=== PATIENT | female | born 1970 | race Caucasian/White ===

== ENCOUNTER 2016-12-17 08:19 | Emergency (ER) | payer BC, OTHER ==
[~2016-12-17] VITALS: Ht 154.9 cm; Wt 59.4 kg
[2016-12-17 08:22] VITALS: TEMP 36.6; Ht 154.9 cm; Wt 59.4 kg
[2016-12-17] MEDS ORDERED: ONDANSETRON INJ 2 MG/ML 2 ML VIAL IV STA (08:41)
[2016-12-17 08:46] VITALS: O2SAT 97
--- NOTE | 2016-12-17 08:49 | EMERGENCY ROOM VISIT NOTE ---
History Report prepared by Jayleenibe: Jack Ayala Under the Supervision of: Dr. Dhiraj Lira D.O. First contact with patient: 08:30 Chief Complaint: CHEST PAIN Stated Complaint: CHEST PAIN, FAINTING, NAUSEA Nursing Triage Summary: PT VERBALIZES SHE WAS SHOVELING SNOW THIS MORNING AROUND 0700 AND CAME INSIDE BECAUSE SHE DEVELOPED NAUSEA AND A HEAT FLASH. PT VERBALIZES SHE FELT LIKE SHE WAS GOING TO PASS OUT. PT VERBALIZES CHEST TIGHTNESS AND SHORTNESS OF BREATH. CP 2/10. DENIES CARDIAC HX. History of Present Illness The patient is a 46 year old female who presents to the Emergency Room with complaints of persistent chest tightness that started earlier this morning. The pain is rated 2/10 in severity. The patient was shoveling snow in her driveway this morning when she started to feel hot, nauseous, and lightheaded. The patient did not lose consciousness but felt like she was going to. The patient had similar symptoms 1-2 years ago, and at that time she did lose consciousness. The patient is having minimal chest tightness, and denies shortness of breath. The patient does not have a cardiac history. She does have a family history of heart disease paternally. The patient is not a smoker. Her last menstrual period was 2 weeks ago, which was heavy. As per the patient's , she appears to be at baseline. Source of History: patient, spouse/significant other Onset: this morning Position: chest Symptom Intensity: 2/10 Quality: other (tightness) Timing: other (persistent) Associated Symptoms: + nausea, No SOB Review of Systems See HPI for pertinent positives and negatives. A total of ten systems were reviewed and were otherwise negative. Past Medical & Surgical Medical Problems: (1) Syncope Family History FH: heart disease Social History Smoking Status: Never Smoker Marital Status: Housing Status: lives with family Current/Historical Medications Scheduled Cetirizine (Zyrtec), 10 MG PO DAILY Fexofenadine-Pseudoephedrine (Yanet-D 24 Hour Allergy), 1 TAB PO DAILY Scheduled PRN Triamcinolone Acetonide (Nasal (Nasacort Allergy 24Hr), 1 SPRAY TODD DAILY PRN for ALLERGIC REACTION Allergies Coded Allergies: No Known Allergies (Unverified , 12/17/16) Physical Exam Vital Signs Date Time Temp Pulse Resp B/P Pulse Ox O2 Delivery O2 Flow Rate FiO2 12/17/16 09:40 68 16 101/75 98 Room Air 12/17/16 08:57 72 12/17/16 08:46 97 Room Air 12/17/16 08:22 36.6 85 18 128/87 97 Room Air Physical Exam GENERAL: Awake, alert, well-appearing, in no distress HENT: Normocephalic, atraumatic. Oropharynx unremarkable. EYES: Normal conjunctiva. Pupils are equal round and reactive to light. Sclera non-icteric. NECK: Supple. FROM. No JVD. RESPIRATORY: Clear to auscultation. CARDIAC: Regular rate, normal rhythm. Extremities warm and well perfused. Pulses equal. ABDOMEN: Soft, non-distended. No tenderness to palpation. No rebound or guarding. No masses. RECTAL: Deferred. MUSCULOSKELETAL: Chest examination reveals no tenderness. The back is symmetrical on inspection without obvious abnormality. There is no CVA tenderness to palpation. No joint edema. LOWER EXTREMITIES: Calves are equal size bilaterally and non-tender. No edema. No discoloration. NEURO: Normal sensorium. No sensory or motor deficits noted. SKIN: No rash or jaundice noted. Medical Decision & Procedures ER Provider Diagnostic Interpretation: X-ray: Per my interpretation, radiologist review. CHEST ONE VIEW PORTABLE CLINICAL HISTORY: Chest pain. COMPARISON STUDY: No previous studies for comparison. FINDINGS: Lung volumes are normal. Lungs are clear. There is no pneumothorax or pleural effusion. Cardiac size is normal. Mediastinal contours are normal. There is no evidence of pulmonary edema. IMPRESSION: No acute cardiopulmonary findings. Electronically signed by: Ranjeet Benson M.D. 12/17/2016 8:56 AM Dictated Date/Time: 12/17/2016 8:54 AM Laboratory Results 12/17/16 08:34 Red Blood Count 4.99, Mean Corpuscular Volume 87.4, Mean Corpuscular Hemoglobin 29.9, Mean Corpuscular Hemoglobin Concent 34.2, Mean Platelet Volume 10.5, Neutrophils (%) (Auto) 70.1, Lymphocytes (%) (Auto) 19.3, Monocytes (%) (Auto) 5.1, Eosinophils (%) (Auto) 4.7, Basophils (%) (Auto) 0.5, Neutrophils # (Auto) 5.18, Lymphocytes # (Auto) 1.43, Monocytes # (Auto) 0.38, Eosinophils # (Auto) 0.35, Basophils # (Auto) 0.04 12/17/16 08:34 Test 12/17/16 08:34 12/17/16 09:58 White Blood Count 7.40 K/uL (4.8-10.8) Red Blood Count 4.99 M/uL (4.2-5.4) Hemoglobin 14.9 g/dL (12.0-16.0) Hematocrit 43.6 % (37-47) Mean Corpuscular Volume 87.4 fL (80-100) Mean Corpuscular Hemoglobin 29.9 pg (25-34) Mean Corpuscular Hemoglobin Concent 34.2 g/dl (32-36) Platelet Count 280 K/uL (130-400) Mean Platelet Volume 10.5 fL (7.4-10.4) Neutrophils (%) (Auto) 70.1 % Lymphocytes (%) (Auto) 19.3 % Monocytes (%) (Auto) 5.1 % Eosinophils (%) (Auto) 4.7 % Basophils (%) (Auto) 0.5 % Neutrophils # (Auto) 5.18 K/uL (1.4-6.5) Lymphocytes # (Auto) 1.43 K/uL (1.2-3.4) Monocytes # (Auto) 0.38 K/uL (0.11-0.59) Eosinophils # (Auto) 0.35 K/uL (0-0.5) Basophils # (Auto) 0.04 K/uL (0-0.2) RDW Standard Deviation 40.5 fL (36.4-46.3) RDW Coefficient of Variation 12.7 % (11.5-14.5) Immature Granulocyte % (Auto) 0.3 % Immature Granulocyte # (Auto) 0.02 K/uL (0.00-0.02) Anion Gap 12.0 mmol/L (3-11) Est Creatinine Clear Calc Drug Dose 52.9 ml/min Estimated GFR () 69.7 Estimated GFR (Non- 60.2 BUN/Creatinine Ratio 15.4 (10-20) Calcium Level 9.1 mg/dl (8.5-10.1) Total Bilirubin 1.6 mg/dl (0.2-1) Direct Bilirubin 0.2 mg/dl (0-0.2) Aspartate Amino Transf (AST/SGOT) 14 U/L (15-37) Alanine Aminotransferase (ALT/SGPT) 16 U/L (12-78) Alkaline Phosphatase 61 U/L (45-117) Troponin I < 0.015 ng/ml (0-0.045) Total Protein 7.9 gm/dl (6.4-8.2) Albumin 3.9 gm/dl (3.4-5.0) Bedside Troponin I 0.000 ng/ml (0-0.045) Laboratory results reviewed by me Medications Administered Medications (Trade) Dose Ordered Sig/Namita Route Start Time Stop Time Status Last Admin Dose Admin Ondansetron HCl (Zofran Inj) 4 mg NOW STAT IV 12/17/16 08:41 12/17/16 08:44 DC 12/17/16 08:50 4 MG ECG Indication: chest pain Rate (beats per minute): 71 Rhythm: sinus rhythm Findings: PVC, no acute ischemic change, other (normal intervals, normal axis) ED Course 0835: The patient was evaluated in room A2. A complete history and physical exam was performed. 0841: Zofran 4 mg IV. Medical Decision Differential diagnosis: Etiologies such as vasovagal event, infection, hypoglycemia, electrolyte abnormalities, cardiac sources, neurologic, as well as others were entertained. Patient reevaluated at 10:30 AM, vital signs are stable, patient has no chest pain no dizziness no shortness of breath. I doubt that this is acute coronary syndrome patient has 2 negative troponins her vital signs are normal she has no current complaints. I discussed the workup with the patient patient's at bedside Impression Primary Impression: Syncope Additional Impression: Non-cardiac chest pain Scribe Attestation The scribe's documentation has been prepared under my direction and personally reviewed by me in its entirety. I confirm that the note above accurately reflects all work, treatment, procedures, and medical decision making performed by me. Departure Information Dispostion Home / Self-Care Referrals Umm Jones DO (PCP) Forms HOME CARE DOCUMENTATION FORM, IMPORTANT VISIT INFORMATION Patient Instructions ED Chest Pain Atypical Unkn Cause, ED Near Syncope Unkn, My [facility] Health Problem Qualifiers Primary Impression: Syncope Encounter type: initial encounter
--- NOTE | 2016-12-17 08:57 | DIAGNOSTIC IMAGING REPORT ---
CHEST ONE VIEW PORTABLE CLINICAL HISTORY: Chest pain. COMPARISON STUDY: No previous studies for comparison. FINDINGS: Lung volumes are normal. Lungs are clear. There is no pneumothorax or pleural effusion. Cardiac size is normal. Mediastinal contours are normal. There is no evidence of pulmonary edema. IMPRESSION: No acute cardiopulmonary findings. Electronically signed by: Ranjeet Benson M.D. 12/17/2016 8:56 AM Dictated Date/Time: 12/17/2016 8:54 AM
[2016-12-17 09:01] LABS: BASO % 0.5 %; BASO ABS # 0.04 K/uL (0-0.2); COMPLETE YES; EOS % 4.7 %; HEMATOCRIT 43.6 % (37-47); IG% 0.3 %; LYMPH % 19.3 %; LYMPH ABS # 1.43 K/uL (1.2-3.4); MEAN CELL VOLUME 87.4 fL (80-100); MEAN CORPUSCULAR HEMOGLOBIN 29.9 pg (25-34); MEAN CORPUSCULAR HGB CONC 34.2 g/dl (32-36); MEAN PLATELET VOLUME 10.5 fL (7.4-10.4); MONO % 5.1 %; NEUT % 70.1 %; PLATELET COUNT 280 K/uL (130-400); RED BLOOD COUNT 4.99 M/uL (4.2-5.4)
[2016-12-17] MEDS ORDERED: CETI10TA84 PO (09:08)
[2016-12-17] MEDS ORDERED: FEXO1TAB58 PO (09:08)
[2016-12-17] MEDS ORDERED: TRIA1SPR4 NAE (09:08)
[2016-12-17 09:09] LABS: ALT/SGPT 16 U/L (12-78); BLOOD UREA NITROGEN 17 mg/dl (7-18); BUN/CREATININE RATIO 15.4 (10-20); CALCIUM 9.1 mg/dl (8.5-10.1); CARBON DIOXIDE 26 mmol/L (21-32); CHLORIDE 101 mmol/L (98-107); GLUCOSE 109 mg/dl (70-99); POTASSIUM 3.6 mmol/L (3.5-5.1); SODIUM 139 mmol/L (136-145)
[2016-12-17 09:14] LABS: ALKALINE PHOSPHATASE 61 U/L (45-117); AST/SGOT 14 U/L (15-37)
[2016-12-17 10:42] VITALS: BP 96/77; PULSE 68; O2SAT 98
== END 2016-12-17 10:43 | disposition home or self-care (01) ==
LOC: C.EDB 08:20 → C.EDA 10:43
DX: R55 Syncope and collapse (principal); R07.9 Chest pain, unspecified

== ENCOUNTER → 2017-10-12 | Outpatient (CLI) | payer BC ==
[~2017-10-12] MED LIST: CETI10TA84 PO; FEXO1TAB58 PO; TRIA1SPR4 NAE
[2017-10-12 16:40] LABS: HEMATOCRIT 41.5 % (37-47); MEAN CELL VOLUME 89.1 fL (80-100); MEAN CORPUSCULAR HGB CONC 33.7 g/dl (32-36); MEAN PLATELET VOLUME 10.6 fL (7.4-10.4); PLATELET COUNT 294 K/uL (130-400); RED BLOOD COUNT 4.66 M/uL (4.2-5.4); WHITE BLOOD COUNT 9.12 K/uL (4.8-10.8)
== END | disposition home or self-care (01) ==
LOC: C.LAB1850 15:39
PROVIDERS: ATTEND Physician Assistant
DX: N92.0 Excessive and frequent menstruation with regular cycle (principal)

== ENCOUNTER → 2017-10-12 | Outpatient (CLI) | payer BC | END | disposition home or self-care (01) | LOC: C.PAPS 09:40 | PROVIDERS: ATTEND Physician Assistant | DX: Z01.419 Encounter for gynecological examination (general) (routine) without abnormal findings (principal) ==

== ENCOUNTER → 2017-11-24 | Outpatient (CLI) | payer BC | END | disposition home or self-care (01) | LOC: C.PATHSPEC 09:10 | PROVIDERS: ATTEND Obstetrics & Gynecology | DX: N92.0 Excessive and frequent menstruation with regular cycle (principal) ==